=== PATIENT | female | born 1930 | race Caucasian/White ===

== ENCOUNTER 2017-04-25 14:36 | Emergency (ER) | payer MEDICARE, BC ==
[2017-04-25 15:00] VITALS: BP 124/73
--- NOTE | 2017-04-25 16:46 | UC ---
Complaint Female HPI - HPI Summary HPI Summary: Patient currently being treated for the FLU by her PCP, has had increased dysuria for the past 2 -3 days. - History Of Current Complaint Chief Complaint: UCGU Stated Complaint: URINARY Time Seen by Provider: 04/25/17 16:25 Hx Obtained From: Patient ?: No Onset/Duration: Sudden Onset, Lasting Days Timing: Constant Severity Initially: Moderate Severity Currently: Moderate Character: Burning Aggravating Factor(s): Urination Associated Signs And Symptoms: Positive: Negative - Allergies/Home Medications Allergies/Adverse Reactions: Allergies Allergy/AdvReac Type Severity Reaction Status Date / Time Clarithromycin [From Biaxin] Allergy Intermediate Itching Verified 04/25/17 15: 02 Erythromycin Allergy Intermediate Itching Verified 04/25/17 15:02 Levofloxacin [From Levaquin] Allergy Intermediate Itching Verified 04/25/17 15: 02 Penicillins Allergy Intermediate Itching Verified 04/25/17 15:02 Sulfa Drugs Allergy Intermediate Itching Verified 04/25/17 15:02 Tetracycline Allergy Intermediate Itching Verified 04/25/17 15:02 Home Medications: Home Medications Oseltamivir CAP* [Tamiflu CAP*] 75 mg PO BID 04/25/17 [History Confirmed ] Tiotropium CAP.INH* [Spiriva CAP.INH*] 2 cap.inh INH DAILY 04/25/17 [History Confirmed 04/25/17] Triamcinolone 0.5% CREAM(NF) [Triamcinolone 0.5% CREAM*] 1 applic TOPICAL BID PRN 04/25/17 [History Confirmed 04/25/17] PMH/Surg Hx/FS Hx/Imm Hx Previously Healthy: Yes - Surgical History Surgical History: Yes Surgery Procedure, Year, and Place: hemorroidectomy, gallbladder. COPACLESIS. RECTAL SX - Family History Known Family History: Positive: Cardiac Disease, Hypertension - Social History Alcohol Use: None Substance Use Type: None Smoking Status (MU): Former Smoker When Did the Patient Quit Smoking/Using Tobacco: 25 YRS AGO Review of Systems Constitutional: Chills, Fatigue Skin: Negative Eyes: Negative ENT: Negative Respiratory: Negative Cardiovascular: Negative Gastrointestinal: Negative Genitourinary: Dysuria, Hematuria, Frequency, Urgency Motor: Negative Neurovascular: Negative Musculoskeletal: Negative Neurological: Negative Psychological: Negative Is Patient Immunocompromised?: No All Other Systems Reviewed And Are Negative: Yes Physical Exam Triage Information Reviewed: Yes Appearance: Well-Nourished, Ill-Appearing, Pain Distress Vital Signs: Initial Vital Signs Temp 97.7 F 04/25/17 14:50 Pulse 103 04/25/17 14:50 Resp 28 04/25/17 14:50 BP 124/73 04/25/17 14:50 Pulse Ox 97 04/25/17 14:50 Vital Signs Reviewed: Yes Eye Exam: Normal ENT: Positive: Pharyngeal erythema Dental Exam: Normal Neck exam: Normal Respiratory Exam: Normal Respiratory: Positive: Chest non-tender, Lungs clear, Normal breath sounds Cardiovascular Exam: Normal Cardiovascular: Positive: No Murmur, Pulses Normal, Tachycardia Abdominal Exam: Normal Abdomen Description: Positive: Nontender, No Organomegaly, Soft Bowel Sounds: Positive: Present Musculoskeletal Exam: Normal Musculoskeletal: Positive: Strength Intact, ROM Intact, No Edema Neurological Exam: Normal Neurological: Positive: Alert, Muscle Tone Normal Psychological Exam: Normal Skin Exam: Normal Complaint Female Dx - Course Course Of Treatment: Hx obtained. exam performed ,meds reviewed, UA positive, treated for UTI - Differential Dx/Diagnosis Differential Diagnosis/HQI/PQRI: Ureteral Stone, Urinary Tract Infection Provider Diagnoses: UTI. tachycardia Discharge - Discharge Plan Condition: Stable Disposition: HOME Prescriptions: Cephalexin CAP* [Keflex CAP*] 500 mg PO BID #14 cap Patient Education Materials: Urinary Tract Infection in Women (ED) Referrals: Gen Lebron DO [Primary Care Provider] - Additional Instructions: 1. take the medication as prescribed. 2. Increase fluid intake and get rest. 3. If not improving follow up with Dr Ferrara on Thursday.
== END 2017-04-25 16:50 | disposition home or self-care (01) ==
LOC: UCCORT 14:36
DX: N39.0 Urinary tract infection, site not specified (principal); R00.0 Tachycardia, unspecified; Z88.1 Allergy status to other antibiotic agents; Z88.0 Allergy status to penicillin; Z88.2 Allergy status to sulfonamides
CPT/HCPCS: 81003; 87077; 87086; 87186; 99212; G0463

== ENCOUNTER 2018-07-28 10:51 | Emergency (ER) | payer MEDICARE, BC ==
[2018-07-28 11:10] VITALS: BP 124/76
--- NOTE | 2018-07-28 11:52 | UC ---
Respiratory Complaint HPI - HPI Summary HPI Summary: The patient is a 88-year-old female that presents here with a 2 day history of productive cough. She states her sputum is yellowish green. She denies any fever. She has been fatigued. She denies any shortness of breath. She has COPD. She has been relying on her rescue inhaler. - History of Current Complaint Chief Complaint: UCRespiratory Stated Complaint: TROUBLE BREATHING Time Seen by Provider: 07/28/18 11:46 Hx Obtained From: Patient Onset/Duration: Gradual Onset, Lasting Days Timing: Constant Severity Initially: Mild Severity Currently: Moderate Pain Intensity: 0 Pain Scale Used: 0-10 Numeric Character: Cough: Productive, Sputum Description: - thick green/yellow Aggravating Factors: Nothing Alleviating Factors: Bronchodilator Associated Signs And Symptoms: Positive: Wheezing. Negative: Dyspnea, Fever, Chills, Pleuritic Chest Pain, Hemoptysis, Dizziness, Calf Pain, Calf Swelling, Edema, URI, Nasal Congestion, Hoarseness, Sinus Discomfort - Allergies/Home Medications Allergies/Adverse Reactions: Allergies Allergy/AdvReac Type Severity Reaction Status Date / Time clarithromycin Allergy Itching Verified 07/28/18 11:21 erythromycin base Allergy Itching Verified 07/28/18 11:21 Penicillins Allergy Itching Verified 07/28/18 11:21 Sulfa (Sulfonamide Allergy Itching Verified 07/28/18 11:21 Antibiotics) Tetracyclines Allergy Itching Verified 07/28/18 11:21 Home Medications: Home Medications Omeprazole 20 mg PO DAILY 07/28/18 [History Confirmed 07/28/18] Warfarin TAB(*) [Coumadin TAB(*)] 2 mg PO DAILY 07/28/18 [History Confirmed ] PMH/Surg Hx/FS Hx/Imm Hx Previously Healthy: Yes Cardiovascular History: Hypertension Respiratory History: COPD, Pneumonia, Pulmonary Embolism - Surgical History Surgical History: Yes Surgery Procedure, Year, and Place: hemorroidectomy, gallbladder. COPACLESIS. RECTAL SX. appy - Family History Known Family History: Positive: Cardiac Disease, Hypertension - Social History Alcohol Use: None Substance Use Type: None Smoking Status (MU): Former Smoker When Did the Patient Quit Smoking/Using Tobacco: 30 YRS AGO Review of Systems All Other Systems Reviewed And Are Negative: Yes Constitutional: Positive: Fatigue Skin: Positive: Negative Eyes: Positive: Negative ENT: Positive: Negative Respiratory: Positive: Cough Cardiovascular: Positive: Negative Gastrointestinal: Positive: Negative Genitourinary: Positive: Negative Motor: Positive: Negative Neurovascular: Positive: Negative Musculoskeletal: Positive: Negative Neurological: Positive: Negative Psychological: Positive: Negative Physical Exam Triage Information Reviewed: Yes Appearance: Well-Appearing, No Pain Distress, Well-Nourished Vital Signs: Initial Vital Signs Temp 97.3 F 07/28/18 11:06 Pulse 108 07/28/18 11:06 Resp 22 07/28/18 11:06 BP 124/76 07/28/18 11:06 Pulse Ox 95 07/28/18 11:06 Vital Signs Reviewed: Yes Eyes: Positive: Conjunctiva Clear ENT: Positive: Hearing grossly normal. Negative: Nasal congestion, Nasal drainage, Trismus, Muffled voice, Hoarse voice Neck: Positive: Supple, Nontender Respiratory: Positive: No respiratory distress, Wheezing Cardiovascular: Positive: RRR, Tachycardia Musculoskeletal: Positive: No Edema Neurological: Positive: Alert Psychological Exam: Normal Skin Exam: Normal UC Diagnostic Evaluation - Laboratory O2 Sat by Pulse Oximetry: 95 - low roque/, not hypoxic - Radiology Radiology Interpretation Completed By: Radiologist Summary of Radiographic Findings: Stigmata of obstructive lung disease. Mild new RIGHT basilar opacity may represent. atelectasis or pneumonia. Respiratory Course/Dx - Differential Dx/Diagnosis Provider Diagnosis: Pneumonia Discharge - Sign-Out/Discharge Documenting (check all that apply): Patient Departure All imaging exams completed and their final reports reviewed: Yes - Discharge Plan Condition: Stable Disposition: HOME Prescriptions: Levofloxacin TAB* [Levaquin TAB*] 250 mg PO DAILY #7 tab Patient Education Materials: Pneumonia (ED) Referrals: Gen Lebron DO [Primary Care Provider] - 1 Week Additional Instructions: Get your INR checked Thursday as planned Recheck for new or worsening symptoms see you MD next week - Billing Disposition and Condition Condition: STABLE Disposition: Home
== END 2018-07-28 12:49 | disposition home or self-care (01) ==
LOC: UCCORT 10:51
DX: J18.9 Pneumonia, unspecified organism (principal); Z88.1 Allergy status to other antibiotic agents; Z88.0 Allergy status to penicillin; I10 Essential (primary) hypertension; Z87.891 Personal history of nicotine dependence; J44.9 Chronic obstructive pulmonary disease, unspecified
CPT/HCPCS: 71046; 99212; G0463

== ENCOUNTER 2018-09-05 10:09 | Emergency (ER) | payer MEDICARE, BC ==
[2018-09-05 10:25] VITALS: BP 128/82
[2018-09-05] MEDS ORDERED: Levalbuterol 0.63MG/3ML NEB* UNIT OF USE INH ONE (10:31)
--- NOTE | 2018-09-05 10:39 | UC ---
Respiratory Complaint HPI - HPI Summary HPI Summary: Patient has long standing COPD history, has had 2 PE, she thinks the last one was about 15 years ago, she remains on coumadin. She was diagnosed wiht Right lower lobe pneumonia about 1 month ago. did follow up with her PCP. the follow up xray was negative for pneumonia. she presents today SOB, has used her ventolin about every 3 hours. She remains afebrile. Slightly tachycardic. EKG was performed and remains unchanged from the EKG on file 15 years prior. Patient is able to carry on conversation, denies any CP. once the O2 was placed via NC, her breathing became less labored, RR 26. - History of Current Complaint Chief Complaint: UCRespiratory Stated Complaint: TROUBLE BREATHING Time Seen by Provider: 09/05/18 10:16 Hx Obtained From: Patient ?: No Onset/Duration: Sudden Onset, Lasting Days Timing: Constant Severity Initially: Mild Severity Currently: Mild Pain Intensity: 0 Character: Cough: Productive Aggravating Factors: Exertion, Deep Breaths Alleviating Factors: Nothing Associated Signs And Symptoms: Positive: Wheezing, Nasal Congestion - Risk Factors Pseudomonas Risk Factors: Chronic Lung Disease - Allergies/Home Medications Allergies/Adverse Reactions: Allergies Allergy/AdvReac Type Severity Reaction Status Date / Time clarithromycin Allergy Itching Verified 09/05/18 10:29 erythromycin base Allergy Itching Verified 09/05/18 10:29 Penicillins Allergy Itching Verified 09/05/18 10:29 Sulfa (Sulfonamide Allergy Itching Verified 09/05/18 10:29 Antibiotics) Tetracyclines Allergy Itching Verified 09/05/18 10:29 Home Medications: Home Medications Trospium (NF) [Sanctura (NF)] 1 cap DAILY 09/05/18 [History Confirmed 09/05/18] PMH/Surg Hx/FS Hx/Imm Hx Previously Healthy: No Cardiovascular History: Cardiac Disease Respiratory History: COPD, Pulmonary Embolism - Surgical History Surgical History: Yes Surgery Procedure, Year, and Place: hemorroidectomy, gallbladder. COPACLESIS. RECTAL SX. appy - Family History Known Family History: Positive: Cardiac Disease, Hypertension - Social History Alcohol Use: None Substance Use Type: None Smoking Status (MU): Former Smoker When Did the Patient Quit Smoking/Using Tobacco: 30 YRS AGO Review of Systems All Other Systems Reviewed And Are Negative: Yes Constitutional: Positive: Fatigue Skin: Positive: Negative Eyes: Positive: Negative ENT: Positive: Negative Respiratory: Positive: Shortness Of Breath, Cough Cardiovascular: Positive: Negative Gastrointestinal: Positive: Negative Genitourinary: Positive: Negative Motor: Positive: Negative Neurovascular: Positive: Negative Musculoskeletal: Positive: Negative Neurological: Positive: Negative Psychological: Positive: Negative Is Patient Immunocompromised?: No Physical Exam Triage Information Reviewed: Yes Appearance: No Pain Distress, Well-Nourished, Ill-Appearing Vital Signs: Initial Vital Signs Temp 97.7 F 09/05/18 10:12 Pulse 119 09/05/18 10:12 Resp 26 09/05/18 10:12 BP 128/82 09/05/18 10:12 Pulse Ox 92 09/05/18 10:12 Vital Signs Reviewed: Yes Eye Exam: Normal ENT: Positive: Pharyngeal erythema, Nasal congestion, Hoarse voice Dental Exam: Normal Neck exam: Normal Neck: Positive: Supple, Nontender, No Lymphadenopathy Respiratory: Positive: Decreased breath sounds, Crackles - rll, Wheezing - throughouyt Cardiovascular Exam: Normal Cardiovascular: Positive: Pulses Normal, Tachycardia Abdominal Exam: Normal Abdomen Description: Positive: Nontender, No Organomegaly, Soft Musculoskeletal Exam: Normal Neurological Exam: Normal Neurological: Positive: Alert Psychological Exam: Normal Skin Exam: Normal UC Diagnostic Evaluation - Laboratory O2 Sat by Pulse Oximetry: 96 Respiratory Course/Dx - Course Course Of Treatment: hisotry obtained, exam performed, meds reviewed, ekg obtained and reviewed with DR Guevara. O2 placed via NC. CHest xray obtained, xopenex neb given, Did recommend and stongly suggest that she go to the Hosptial. Patient ademently diagreed and refused. she states she understands she is ill and will trate at home however she is told to treat herself. chest xray positive for bilateral pnuemonia and COPD. Patient still refuisng to go to the ER. ent home on albuterol nebulizer and Levaquin. Advised to follow up with Dr Lebron in the next couple days. - Differential Dx/Diagnosis Differential Diagnosis/HQI/PQRI: Bronchitis, Exacerbation Of COPD, Influenza, Lower Resp Infection, Pulmonary Embolism Provider Diagnosis: Bilateral pneumonia, COPD exacerbation Discharge - Sign-Out/Discharge Documenting (check all that apply): Patient Departure All imaging exams completed and their final reports reviewed: Yes - Discharge Plan Condition: Stable Disposition: HOME Prescriptions: Albuterol 2.5MG/3ML (0.083%)* [Ventolin 2.5 MG/3 ML NEB.IAN*] 2.5 mg INH Q4H #1 box Levofloxacin TAB* [Levaquin TAB*] 750 mg PO DAILY #7 tab Patient Education Materials: Pneumonia (ED) Referrals: Gen Lebron DO [Primary Care Provider] - Additional Instructions: 1. Use the medication as prescribed. 2. Use your oxygen as needed throughout the day while treating your pneumonia 3. Follow up with Dr Lebron early this week. 4. Follow up in ER if you develop increased Respiratory distress. - Billing Disposition and Condition Condition: STABLE Disposition: Home - Attestation Statements Provider Attestation: Per institutional requirements, I have reviewed the chart, however, I was not consulted specifically or made aware of this patient by the midlevel provider. I did not personally evaluate, interact with , or disposition this patient. Addendum entered and electronically signed by Magaly Garcia NP 09/05/18 11: 46: Addendum Addendum: Once again encouraged patient to go to ER for further follow up. She refuses, she expressed understanding that she was in need of care above what we can give , she has lived with lung disease for many years and will do what she can at home.
== END 2018-09-05 11:49 | disposition home or self-care (01) ==
LOC: UCCORT 10:09
DX: J44.1 Chronic obstructive pulmonary disease with (acute) exacerbation (principal); J18.9 Pneumonia, unspecified organism; Z79.01 Long term (current) use of anticoagulants; Z88.1 Allergy status to other antibiotic agents; Z88.0 Allergy status to penicillin; Z88.2 Allergy status to sulfonamides; Z86.711 Personal history of pulmonary embolism; Z87.891 Personal history of nicotine dependence
CPT/HCPCS: 71046; 93005; 99212; G0463